=== PATIENT | male | born 1975 | race Caucasian/White ===

== ENCOUNTER → 2016-10-20 | Outpatient (CLI) | payer BC | LOC: MOB LAB 09:58 | PROVIDERS: ATTEND Family Medicine | DX: D75.89 Other specified diseases of blood and blood-forming organs (principal) | CPT/HCPCS: 36415; 82607; 82746 ==

== ENCOUNTER → 2016-10-26 | Outpatient (CLI) | payer BC | LOC: LAB 12:15 | PROVIDERS: ATTEND Family Medicine | DX: D75.89 Other specified diseases of blood and blood-forming organs (principal); E66.01 Morbid (severe) obesity due to excess calories | CPT/HCPCS: 36415; 82272; 82728; 83540; 83550 ==

== ENCOUNTER → 2016-11-02 | Outpatient (CLI) | payer BC ==
--- NOTE | 2016-11-02 15:03 | DI ---
PA /LATERAL CHEST X-RAY, 11/02/2016 2:35 PM : Clinical History: Chest pain Previous Exam: None at this facility. There is no acute soft tissue or bony abnormality. Heart size is normal. Lungs are clear. Mediastinal structures are normal. There are no pulmonary nodules. IMPRESSION: Normal chest x-ray.
--- NOTE | 2016-11-02 15:14 | DI ---
XR RIBS 2VW U/L,11/02/2016 2:41 PM: Clinical History: Rib pain Previous Exam: November 02, 2016 Findings: Multiple views of the right ribs are obtained, and demonstrate anatomic alignment without fractures. There is no evidence of pneumothorax. Impression: No visible rib fracture.
== END ==
LOC: RAD 14:31
PROVIDERS: ATTEND Family Medicine
DX: R07.9 Chest pain, unspecified (principal)
CPT/HCPCS: 71020; 71100